=== PATIENT | male | born 1970 | race Caucasian/White ===

== ENCOUNTER 2016-11-16 10:38 | Emergency (ER) | payer OTHER ==
[~2016-11-16 10:38] MED LIST: ALLEGRA180 MG PO; NO MEDS CURRENTLY
[2016-11-16] MEDS ORDERED: TAMIFLU75 MG/CAP PO (11:09)
[2016-11-16] MEDS ORDERED: MUCINEX DM ER1 EAC1 PO (11:09)
== END 2016-11-16 12:03 ==
LOC: EDMED 10:38
DX: J10.1 Influenza due to other identified influenza virus with other respiratory manifestations (principal); Z88.0 Allergy status to penicillin; Z98.890 Other specified postprocedural states